=== PATIENT | male | born 1955 | race Caucasian/White ===

== ENCOUNTER 2018-01-21 12:16 | Emergency (ER) | payer OTHER ==
[~2018-01-21] VITALS: Ht 180.3 cm; Wt 118.8 kg
[2018-01-21] MEDS ORDERED: ELIQUIS5 MG PO (12:32)
[2018-01-21] MEDS ORDERED: CYMBALTA60 MG PO (12:33)
[2018-01-21] MEDS ORDERED: AMIODARONE HCL400 MG PO (12:33)
[2018-01-21] MEDS ORDERED: LISINOPRIL10 MG PO (12:33)
[2018-01-21] MEDS ORDERED: LIPITOR10 MG (12:34)
[2018-01-21] MEDS ORDERED: ALLOPURINOL300 MG PO (12:34)
[2018-01-21] MEDS ORDERED: LEVOTHYROXINE200 MCG PO (12:35)
[2018-01-21] MEDS ORDERED: FLOMAX0.4 MG PO (12:35)
[2018-01-21] MEDS ORDERED: GABAPENTIN600 MG PO (12:35)
== END 2018-01-21 15:30 | disposition short-term general hospital (02) ==
LOC: ED 12:16
PROC: BT40ZZZ Ultrasonography of Bladder (ICD-10-PCS; principal; 2018-01-21)
DX: J96.00 Acute respiratory failure, unspecified whether with hypoxia or hypercapnia (principal); R34 Anuria and oliguria; I42.9 Cardiomyopathy, unspecified; Z79.899 Other long term (current) drug therapy
CPT/HCPCS: 36415; 51798; 71045; 80053; 83605; 83690; 85025; 96361; 96374; 99285; J2405; J7030

== ENCOUNTER 2018-02-01 10:09 | Emergency (ER) | payer OTHER ==
[~2018-02-01] VITALS: Ht 180.3 cm; Wt 118.8 kg
[~2018-02-01 10:09] MED LIST: ALLOPURINOL300 MG PO; AMIODARONE HCL400 MG PO; CYMBALTA60 MG PO; ELIQUIS5 MG PO; FLOMAX0.4 MG PO; GABAPENTIN600 MG PO; LEVOTHYROXINE200 MCG PO; LIPITOR10 MG; LISINOPRIL10 MG PO
[2018-02-01] MEDS ORDERED: COREG3.125 MG PO (10:22)
[2018-02-01] MEDS ORDERED: KEFLEX500 MG PO (12:35)
== END 2018-02-01 13:24 | disposition home or self-care (01) ==
LOC: ED 10:09
PROC: 0T9B70Z Drainage of Bladder with Drainage Device, Via Natural or Artificial Opening (ICD-10-PCS; principal; 2018-02-01)
PROC: 4A0D7LZ Measurement of Urinary Volume, Via Natural or Artificial Opening (ICD-10-PCS; 2018-02-01)
DX: N30.90 Cystitis, unspecified without hematuria (principal); I50.9 Heart failure, unspecified; E03.9 Hypothyroidism, unspecified; I48.91 Unspecified atrial fibrillation; D64.9 Anemia, unspecified; F32.9 Major depressive disorder, single episode, unspecified; Z79.899 Other long term (current) drug therapy
CPT/HCPCS: 36415; 51702; 51798; 80048; 81001; 99283